=== PATIENT | female | born 1975 | race Caucasian/White ===

== ENCOUNTER 2023-07-04 15:31 | Emergency (ER) | payer OTHER ==
[2023-07-04] MEDS ORDERED: HYDROCODONE/APAP 5/325 MG TAB ONE (17:57)
[2023-07-04] MEDS ORDERED: ACETAMINOPHEN 325 MG TABLET ONE (17:57)
[2023-07-04] MEDS ORDERED: ONDANSETRON 4 MG (ODT) TAB ONE (17:59)
--- NOTE | 2023-07-04 18:49 | RAD REPORT ---
EXAM DESCRIPTION: CT - CTHCSPWOC - 07/04/2023 6:09 pm CLINICAL HISTORY: PAIN COMPARISON: No comparisons TECHNIQUE: Axial thin cut noncontrast CT images of the head were obtained. Axial thin cut noncontrast CT images of the cervical spine were obtained. Multiplanar reformatted images were generated and reviewed. All CT scans are performed using dose optimization technique as appropriate and may include automated exposure control or mA/KV adjustment according to patient size. FINDINGS: CT HEAD WITHOUT CONTRAST: No acute hemorrhage, hydrocephalus or extra-axial collection is identified.Mild diffuse parenchymal v olume loss.No areas of brain edema or midline shift. Moderate to severe scattered paranasal sinus mucosal thickening.The calvarium is intact. CT CERVICAL SPINE WITHOUT CONTRAST: No fracture or subluxation.No prevertebral soft tissues swelling is identified. Incidentally noted b ilateral cervical ribs. IMPRESSION: No acute traumatic intracranial or cervical spine findings. Moderate to severe inflammatory paranasal sinus mucosal thickening.
--- NOTE | 2023-07-04 18:52 | RAD REPORT ---
EXAM DESCRIPTION: CT - CTFB CLINICAL HISTORY: PAIN COMPARISON: No comparisons TECHNIQUE: Axial noncontrast thin CT images of the face were obtained with sagittal and coronal zen nstruction images. All CT scans are performed using dose optimization technique as appropriate and may include automated exposure control or mA/KV adjustment according to patient size. FINDINGS: No acute facial bone fracture is seen.The mandible is intact. The globes and orbital contents are grossly unremarkable.Moderate to advanced thickening throughout t he paranasal sinuses. IMPRESSION: Negative for facial bone fracture. Moderate to advanced thickening throughout the paranasal sinuses.
--- NOTE | 2023-07-04 19:11 | RAD REPORT ---
EXAM DESCRIPTION: RAD - Elbow Right 3 View - 07/04/2023 6:19 pm CLINICAL HISTORY: PAIN COMPARISON: No comparisons TECHNIQUE: Right elbow, 3 views. FINDINGS: No fracture is identified. No elevated posterior fat pad to suggest an effusion. There is no dislocation or periosteal reaction noted. Epiphyses and growth plates are normal in appea constantine. No foreign body or other soft tissue abnormality. IMPRESSION: Negative right elbow examination.
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
--- NOTE | 2023-07-04 19:12 | RAD REPORT ---
EXAM DESCRIPTION: RAD - Elbow Left 3 View - 07/04/2023 6:19 pm CLINICAL HISTORY: PAIN COMPARISON: No comparisons TECHNIQUE: Left elbow, 3 views. FINDINGS: No fracture is identified. No elevated posterior fat pad to suggest an effusion. There is no dislocation or periosteal reaction noted. No foreign body or other soft tissue abnormalit y. IMPRESSION: Negative left elbow examination.
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
[2023-07-04 21:04] VITALS: TEMP 99
[2023-07-04 21:05] VITALS: BP 168/88; O2SAT 99
--- NOTE | 2023-07-04 21:44 | RAD REPORT ---
EXAM DESCRIPTION: JOHANNA DIAZ - 07/04/2023 7:58 pm CLINICAL HISTORY: PAIN COMPARISON: No comparisons TECHNIQUE: Left hand, 3 views. FINDINGS: No fracture is identified. There is no dislocation or periosteal reaction noted. Joint alignment is maintained. No foreign body or other soft tissue abnormality. IMPRESSION: Negative left hand examination.
== END 2023-07-04 20:40 | disposition home or self-care (01) ==
LOC: ER 15:31
DX: S00.93XA Contusion of unspecified part of head, initial encounter (principal); Y04.2XXA Assault by strike against or bumped into by another person, initial encounter; Y93.9 Activity, unspecified; Y92.019 Unspecified place in single-family (private) house as the place of occurrence of the external cause; F32.A Depression, unspecified; I10 Essential (primary) hypertension; M79.642 Pain in left hand; M79.645 Pain in left finger(s); M25.522 Pain in left elbow; M25.521 Pain in right elbow; M54.2 Cervicalgia; J32.9 Chronic sinusitis, unspecified
CPT/HCPCS: 70450; 72125; 70486; 76377; 71045; 73130; 73080 ×2; 99284; Q0162